=== PATIENT | male | born 1960 | race Caucasian/White ===

== ENCOUNTER 2019-03-19 10:53 | Emergency (ER) | payer OTHER ==
[2019-03-19 11:22] LABS: Absolute Lymphocytes (CBC) 1.1 K/uL (0.7-4.9); Basophils % 0.4 % (0-1.3); Hematocrit 46.1 % (39.6-49.0); Lymphocytes % 19.9 % (15.3-44.8); MPV 8.3 fL (7.6-11.3); RBC Red Blood Cell Count 4.94 M/uL (4.33-5.43)
[2019-03-19] MEDS ORDERED: ASPIRIN 81 MG CHEWABLE TABLET ONE (11:27)
[2019-03-19 11:33] LABS: Protime INR 0.93
[2019-03-19 11:42] LABS: ALT/SGPT 34 U/L (12-78); AST/SGOT 17 U/L (15-37); Alkaline Phosphatase 102 U/L (45-117); BUN Blood Urea Nitrogen 14 mg/dL (7-18); Bicarbonate 29 mmol/L (21-32); Bilirubin Direct 0.1 mg/dL (0-0.2); Bilirubin Total 0.6 mg/dL (0.2-1.0); Glucose Level 182 mg/dL (74-106); Magnesium 2.2 mg/dL (1.8-2.4); NT PRO-BNP 16 pg/mL (<125); Protein, Total 7.3 g/dL (6.4-8.2); Sodium Level 139 mmol/L (136-145); Troponin (Emerg Dept Use Only) < 0.02 ng/mL (0.0-0.045)
--- NOTE | 2019-03-19 11:49 | RAD REPORT ---
EXAM DESCRIPTION: RAD - Chest Single View - 03/19/2019 11:14 am CLINICAL HISTORY: CHEST PAIN Chest pain. COMPARISON: CHEST PA AND LAT 2 VIEW dated 01/14/2008 FINDINGS: Portable technique limits examination quality. The lungs are grossly clear. The heart is upper limit of normal in size. No displaced fractures. IMPRESSION: No acute intrathoracic process suspected.
--- NOTE | 2019-03-19 14:27 | ER ---
Nurse's Notes [facility] Name: Kassandra Du Age: 58 yrs Sex: Male : 1960 Arrival Date: 03/19/2019 Time: 10:58 Bed 4 Private MD: Diagnosis: Chest pain, unspecified Presentation: 03/19 11:08 Presenting complaint: Patient states: off and on chest pain x 1 week, became more ss continuous with belching at 0430 this AM. Pt had a negative stress test back in November 2018. Family history of cardiac disease. Transition of care: patient was not received from another setting of care. Onset of symptoms was March 14, 2019. Risk Assessment: Do you want to hurt yourself or someone else? Patient reports no desire to harm self or others. Initial Sepsis Screen: Does the patient meet any 2 criteria? No. Patient's initial sepsis screen is negative. Does the patient have a suspected source of infection? No. Patient's initial sepsis screen is negative. Care prior to arrival: None. 11:08 Method Of Arrival: Ambulatory ss 11:08 Acuity: MARCIA 3 ss Historical: - Allergies: 11:11 No Known Allergies; ss - PMHx: 11:11 Hypertension; prostate CA; Hyperlipidemia; ss - PSHx: 11:11 prostatectomy; ss - Immunization history:: Adult Immunizations up to date. - Coronavirus screen:: The patient has NOT traveled to [place], [place], or [place] in the past 14 days. Proceed with normal triage process as indicated. - Social history:: Smoking status: Patient denies any tobacco usage or history of. - Ebola Screening: : Patient denies exposure to infectious person Patient denies travel to an Ebola-affected area in the 21 days before illness onset. Screenin:17 Abuse screen: Denies threats or abuse. Denies injuries from another. Nutritional jl7 screening: No deficits noted. Tuberculosis screening: No symptoms or risk factors identified. Fall Risk IV access (20 points). Total Gutiérrez Fall Scale indicates No Risk (0-24 pts). Assessment: 11:17 General: Appears in no apparent distress. uncomfortable, Behavior is calm, cooperative, jl7 appropriate for age. Pain: Complains of pain in mid-sternal area Pain does not radiate. Pain currently is 3 out of 10 on a pain scale. at worst was 5 out of 10 on a pain scale. Quality of pain is described as pressure, Pain began This morning Is intermittent. Neuro: Level of Consciousness is awake, alert, obeys commands, Oriented to person, place, time, situation. Cardiovascular: Patient's skin is warm and dry. Respiratory: Airway is patent Respiratory effort is even, unlabored, Respiratory pattern is regular, symmetrical. Derm: Skin is pink, warm \T\ dry. 14:35 Reassessment: Patient appears in no apparent distress at this time. Patient and/or ss family updated on plan of care and expected duration. Pain level reassessed. Patient is alert, oriented x 3, equal unlabored respirations, skin warm/dry/pink. Patient denies pain at this time. Patient states feeling better. Vital Signs: 11:11 BP 141 / 99; Pulse 80; Resp 16; Pulse Ox 99% on R/A; Weight 79.38 kg; Height 5 ft. 10 ss in. (177.80 cm); 11:11 Body Mass Index 25.11 (79.38 kg, 177.80 cm) ED Course: 10:58 Patient arrived in ED. es 10:58 Noe Smith MD is Attending Physician. kdr 11:06 Saleem Roberson, JAY is Primary Nurse. jl7 11:09 Triage completed. ss 11:11 Arm band placed on right wrist. ss 11:14 XRAY Chest (1 view) In Process Unspecified. EDMS 11:17 Patient has correct armband on for positive identification. Placed in gown. Bed in low jl7 position. Call light in reach. Side rails up X 1. monitoring manager on. Pulse ox on. NIBP on. Warm blanket given. 11:17 Initial lab(s) drawn, by me, sent to lab. EKG done, by ED staff, reviewed by Noe Smith MD. Inserted saline lock: 22 gauge in left antecubital area, using aseptic technique. Blood collected. Patient maintains SpO2 saturation greater than 95% on room air. 13:51 Repeat lab(s) drawn. by me, sent to lab. jl7 14:35 No provider procedures requiring assistance completed. IV discontinued, intact, ss bleeding controlled, No redness/swelling at site. Pressure dressing applied. Administered Medications: No medications were administered Outcome: 14:26 Discharge ordered by . kdr 14:35 Discharged to home ambulatory, with family. 14:35 Condition: good 14:35 Discharge instructions given to patient, family, Instructed on discharge instructions, follow up and referral plans. Demonstrated understanding of instructions, follow-up care. 14:36 Patient left the ED. Signatures: Dispatcher [employer] Noe Mathews MD MD kdr Salyer, Edna es Smirch, Shelby, RN RN Saleem Roberson RN RN jl7
--- NOTE | 2019-03-19 14:28 | EDPHYS ---
Physician Documentation [facility] Name: Kassandra Du Age: 58 yrs Sex: Male : 1960 Arrival Date: 03/19/2019 Time: 10:58 Bed 4 Private MD: ED Physician Noe Smith HPI: 03/19 11:14 This 58 yrs old Male presents to ER via Ambulatory with complaints of Chest kdr Pain. 11:14 The patient or guardian reports chest pain that is located primarily in the substernal kdr area. Onset: suddenly, this morning, at 04:30. The pain does not radiate. Associated signs and symptoms: Pertinent positives: nausea, palpitations, shortness of breath, Pertinent negatives: diaphoresis, dizziness, headache, lower extremity pain, lower extremity swelling, lightheadedness, near syncope. The chest pain is described as aching, causing indigestion, a pressure. Duration: The patient or guardian reports a single episode, that is still ongoing, Wax and wane. Modifying factors: The symptoms are alleviated by nothing. some minor but incomplete relief with belching. Severity of pain: At its worst the pain was mild moderate just prior to arrival, a 7 / 10 in the emergency department the pain has improved moderately, is a 1 / 10. The patient has not experienced similar symptoms in the past. Historical: - Allergies: 11:11 No Known Allergies; ss - PMHx: 11:11 Hypertension; prostate CA; Hyperlipidemia; ss - PSHx: 11:11 prostatectomy; ss - Immunization history:: Adult Immunizations up to date. - Coronavirus screen:: The patient has NOT traveled to [place], [place], or [place] in the past 14 days. Proceed with normal triage process as indicated. - Social history:: Smoking status: Patient denies any tobacco usage or history of. - Ebola Screening: : Patient denies exposure to infectious person Patient denies travel to an Ebola-affected area in the 21 days before illness onset. ROS: 11:14 Constitutional: Negative for fever, chills, and weight loss, Eyes: Negative for injury, kdr pain, redness, and discharge, ENT: Negative for injury, pain, and discharge, Neck: Negative for injury, pain, and swelling, Abdomen/GI: Negative for abdominal pain, nausea, vomiting, diarrhea, and constipation, Back: Negative for injury and pain, : Negative for injury, bleeding, discharge, and swelling, MS/Extremity: Negative for injury and deformity, Skin: Negative for injury, rash, and discoloration, Neuro: Negative for headache, weakness, numbness, tingling, and seizure activity. Psych: Negative for depression, anxiety, suicide ideation, homicidal ideation, and hallucinations, Allergy/Immunology: Negative for hives, rash, and allergies, Endocrine: Negative for neck swelling, polydipsia, polyuria, polyphagia, and marked weight changes, Hematologic/Lymphatic: Negative for swollen nodes, abnormal bleeding, and unusual bruising. 11:14 Cardiovascular: Positive for chest pain, palpitations, Negative for edema, orthopnea, paroxysmal nocturnal dyspnea. Exam: 11:14 Constitutional: This is a well developed, well nourished patient who is awake, alert, kdr and in no acute distress. Head/Face: Normocephalic, atraumatic. Eyes: Pupils equal round and reactive to light, extra-ocular motions intact. Lids and lashes normal. Conjunctiva and sclera are non-icteric and not injected. Cornea within normal limits. Periorbital areas with no swelling, redness, or edema. Neck: Trachea midline, no thyromegaly or masses palpated, and no cervical lymphadenopathy. Supple, full range of motion without nuchal rigidity, or vertebral point tenderness. No Meningismus. Chest/axilla: Normal chest wall appearance and motion. Nontender with no deformity. No lesions are appreciated. Cardiovascular: Regular rate and rhythm with a normal S1 and S2. No gallops, murmurs, or rubs. Normal PMI, no JVD. No pulse deficits. Respiratory: Lungs have equal breath sounds bilaterally, clear to auscultation and percussion. No rales, rhonchi or wheezes noted. No increased work of breathing, no retractions or nasal flaring. Abdomen/GI: Soft, non-tender, with normal bowel sounds. No distension or tympany. No guarding or rebound. No evidence of tenderness throughout. Back: No spinal tenderness. No costovertebral tenderness. Full range of motion. Skin: Warm, dry with normal turgor. Normal color with no rashes, no lesions, and no evidence of cellulitis. MS/ Extremity: Pulses equal, no cyanosis. Neurovascular intact. Full, normal range of motion. Neuro: Awake and alert, GCS 15, oriented to person, place, time, and situation. Cranial nerves II-XII grossly intact. Motor strength 5/5 in all extremities. Sensory grossly intact. Cerebellar exam normal. Normal gait. Psych: Awake, alert, with orientation to person, place and time. Behavior, mood, and affect are within normal limits. Vital Signs: 11:11 BP 141 / 99; Pulse 80; Resp 16; Pulse Ox 99% on R/A; Weight 79.38 kg; Height 5 ft. 10 ss in. (177.80 cm); 11:11 Body Mass Index 25.11 (79.38 kg, 177.80 cm) ss MDM: 11:14 HEART Score: History: Slightly Suspicious (0), ECG: Normal (0), Age: > 45 and < 65 kdr years (1), Risk Factors: 1 or 2 risk factors (1), Troponin: < or = 1 x Normal Limit (0), Total Score = 2. Data reviewed: vital signs, nurses notes, lab test result(s), EKG, radiologic studies. 14:26 Patient medically screened. [facility] 03/19 10:59 Order name: Basic Metabolic Panel [facility] 03/19 10:59 Order name: CBC with Diff; Complete Time: 11:58 [facility] 03/19 10:59 Order name: LFT's; Complete Time: 11: [facility] 03/19 10:59 Order name: Magnesium; Complete Time: 11:58 [facility] 03/19 10:59 Order name: NT PRO-BNP; Complete Time: 11:58 [facility] 03/19 10:59 Order name: PT-INR; Complete Time: 11: [facility] 03/19 10:59 Order name: Troponin (emerg Dept Use Only); Complete Time: 11:58 [facility] 03/19 10:59 Order name: XRAY Chest (1 view); Complete Time: 11:58 [facility] 03/19 10:59 Order name: EKG; Complete Time: 11:00 [facility] 03/19 10:59 Order name: Cardiac monitoring; Complete Time: 11: [facility] 03/19 10:59 Order name: EKG - Nurse/Tech; Complete Time: 11: [facility] 03/19 10:59 Order name: IV Saline Lock; Complete Time: 11: [facility] 03/19 10:59 Order name: Basic Metabolic Panel; Complete Time: 11:58 [facility] 03/19 11:59 Order name: Troponin (emerg Dept Use Only): Draw two hours after initial draw; Complete kdr Time: 1403/19 10:59 Order name: Labs collected and sent; Complete Time: 11:17 kdr 03/19 10:59 Order name: O2 Per Protocol; Complete Time: 11:17 kdr 03/19 10:59 Order name: O2 Sat Monitoring; Complete Time: : kdr EC:14 Rate is 71 beats/min. Rhythm is regular, Normal Sinus Rhythm with No ectopy. QRS [place] kdr is Normal. [place] interval is normal. QRS interval is normal. QT interval is normal. Clinical impression: Normal ECG. Administered Medications: No medications were administered Disposition: 03/19/19 14:26 Discharged to Home. Impression: Chest pain, unspecified. - Condition is Stable. - Discharge Instructions: Nonspecific Chest Pain. - Medication Reconciliation Form, Thank You Letter form. - Follow up: Private Physician; When: 2 - 3 days; Reason: If symptoms return, Further diagnostic work-up, Recheck today's complaints, Continuance of care, Re-evaluation by your physician. - Problem is an acute exacerbation. - Symptoms have improved. Signatures: Dispatcher [employer] [facility] Noe Smith MD MD kdr Carly Sal RN RN ss Corrections: (The following items were deleted from the chart) 14:36 14:26 03/19/2019 14:26 Discharged to Home. Impression: Chest pain, unspecified. ss Condition is Stable. Forms are Medication Reconciliation Form, Thank You Letter, Antibiotic Education, Prescription Opioid Use. Follow up: Private Physician; When: 2 - 3 days; Reason: If symptoms return, Further diagnostic work-up, Recheck today's complaints, Continuance of care, Re-evaluation by your physician. Problem is an acute exacerbation. Symptoms have improved. kdr
[2019-03-19 15:58] VITALS: BP 141/99; O2SAT 99
--- NOTE | 2019-03-19 23:15 | EKG ---
Test Date: 2019-03-19 Test Time: 11:12:36 Laboratory Technology Teacher: KIMMY MEASUREMENT RESULTS: Intervals: Rate: 71 MO: 152 QRSD: 74 QT: 374 QTc: 406 [place]: P: 51 MO: 152 QRS: 41 T: 49 INTERPRETIVE STATEMENTS: Normal sinus rhythm Normal ECG No previous ECG available for comparison Electronically Signed On 03-19-19 23:14:45 EMBLEM DRAWER IN by Juan Mcfadden
== END 2019-03-19 14:36 | disposition home or self-care (01) ==
LOC: ER 10:53
DX: R07.9 Chest pain, unspecified (principal)
CPT/HCPCS: 36415; 71045; 80048; 80076; 83735; 83880; 84484; 85025; 85610; 93005; 99285